=== PATIENT | female | born 1990 | race Caucasian/White ===

== ENCOUNTER 2017-05-30 23:03 | Emergency (ER) | payer OTHER ==
[~2017-05-30] VITALS: Ht 162.6 cm; Wt 63.6 kg
[~2017-05-30 23:03] MED LIST: BENADRYL25 MG PO; BENTYL10 MG PO; FLEXERIL10 MG PO; JUNEL FE 1/21 TABLET PO; KENALOG,ARISTOC80 GM TP; MOBIC7.5 MG PO; NUVARING VAGIN1 EACH VG; PREDNISONE10 MG PO; SKELAXIN800 MG PO
[2017-05-31 00:30] LABS: HEMATOCRIT 36.9 % (36.0-46.0); HEMOGLOBIN 13.1 G/DL (11.9-15.5); MCH 29.8 PG (29.0-34.0); MCHC 35.5 G/DL (30.0-36.0); MCV 84.1 FL (83-99); PLATELET COUNT 277 K/uL (156-360); RBC DIS.WIDTH-CV 12.1 % (11.8-14.6); RBC DIS.WIDTH-SD 37.2 % (39-53); RED BLOOD COUNT 4.39 M/uL (3.80-5.20); WHITE BLOOD COUNT 11.3 K/uL (4.1-10.2)
[2017-05-31 00:39] LABS: CHLORIDE 105 mEq/L (99-109); POTASSIUM 3.6 mEq/L (3.7-5.4); SODIUM 138 mEq/L (136-147)
[2017-05-31 00:40] LABS: GLUCOSE 130 mg/dL (70-99)
[2017-05-31 00:44] LABS: CREATININE 0.8 mg/dL (0.6-1.3); GFR ESTIMATE (CALCULATED) > 59 mL/min/
[2017-05-31 00:45] LABS: UREA NITROGEN (BUN) 12 mg/dL (9-23)
[2017-05-31 03:59] LABS: APPEARANCE CLOUDY ((CLEAR)); BILIRUBIN NEGATIVE; BLOOD LARGE; COLOR AMBER ((YELLOW)); GLUCOSE (STRIP) NEGATIVE; KETONES 5; LEUKOCYTES NEGATIVE; NITRITE POSITIVE; PROTEIN (STRIP) 100; SPECIFIC GRAVITY 1.024 (1.000-1.030)
[2017-05-31] MEDS ORDERED: KEFLEX500 MG PO (04:50)
[2017-05-31 05:01] LABS: BACTERIA 1+ /HPF; EPITHELIAL CELLS 1+ /HPF; MUCUS 4+ /LPF; RED BLOOD CELLS TNTC /HPF (0-5); UCUL ADDED? YES; WHITE BLOOD CELLS TNTC /HPF (0-5)
[2017-05-31 05:12] VITALS: BP 108/62
== END 2017-05-31 05:14 | disposition home or self-care (01) ==
LOC: EME 23:03
DX: N10 Acute pyelonephritis (principal); Z87.442 Personal history of urinary calculi; Z91.040 Latex allergy status
CPT/HCPCS: 71046; 80048; 81003; 85027; 87077; 87086; 87186; 99281; 99285; J1885; J2765